=== PATIENT | female | born 1995 | race Caucasian/White ===

== ENCOUNTER 2017-08-26 14:17 | Day surgery (SDC) | payer OTHER ==
[~2017-08-26] VITALS: Ht 170.2 cm; Wt 95.7 kg
[2017-08-26] VITALS (11 sets, daily range): BP systolic 107–130; BP diastolic 62–82; PULSE 72–94; RESP 11–25; Ht 170.2 cm; Wt 95.7 kg
[~2017-08-26 14:17] MED LIST: CEFAZOLIN 2 GM/50 ML (PMX) 50 ML IVPB SCH; NO MEDS; SOD CHLORIDE 0.9% 1,000 ML IV SCH
[2017-08-26] MEDS ORDERED: METOCLOPRAMIDE 10 MG INJ ONE (16:24)
[2017-08-26] MEDS ORDERED: PROPOFOL 20 ML ONE (16:24)
[2017-08-26] MEDS ORDERED: ONDANSETRON 4 MG INJ ONE (16:24)
[2017-08-26] MEDS ORDERED: LIDOCAINE 2% (SDV) 5 ML INJ ONE (16:24)
[2017-08-26] MEDS ORDERED: CEFAZOLIN 1 GM INJ ONE (16:24)
[2017-08-26] MEDS ORDERED: EPHEDrine SULFATE 50 MG/5 ML SYG IV PRN (16:30)
[2017-08-26] MEDS ORDERED: LABETALOL HCL 20MG INJ IV PRN (16:30)
[2017-08-26] MEDS ORDERED: FENTAnyl 50 MCG/ML VIAL IV PRN ×3 (16:30)
[2017-08-26] MEDS ORDERED: MEPERIDINE 25 MG INJ IV PRN (16:30)
[2017-08-26] MEDS ORDERED: METOCLOPRAMIDE 10 MG INJ IV PRN (16:30)
[2017-08-26] MEDS ORDERED: MIDAZOLAM 1 MG/ML 2 ML INJ IV PRN (16:30)
[2017-08-26] MEDS ORDERED: ONDANSETRON 4 MG INJ IV PRN (16:30)
[2017-08-26] MEDS ORDERED: HYDROmorphONE (0.2 MG/ML) 10ML SYG IV PRN ×2 (16:30)
[2017-08-26] MEDS ORDERED: OXYCODONE/ACETAMINOPHEN (5/325) TAB PO PRN ×2 (16:30)
[2017-08-26] MEDS ORDERED: DIPHENHYDRAMINE 50 MG INJ IV PRN (16:30)
[2017-08-26] MEDS ORDERED: hydrALAzine 20 MG INJ IV PRN (16:30)
[2017-08-26] MEDS ORDERED: BUPIVACAINE 0.25% (MPF) 30 ML INJ ONE (16:59)
--- NOTE | 2017-08-26 17:07 | OPR ---
Date/Time of Note Date/Time of Note DATE: 08/26/17 TIME: 17:04 Operative Report Procedure Date: Aug 26, 2017 Preoperative Diagnosis left breast tumor Postoperative Diagnosis same Operation/Procedure Performed 1. excision of left breast tumor 5 cm tumor 7 cm incision 2. localized adjacent tissue transfer with the use of skin flaps 14 sq cm defect 3. therapeutic injection of subcutaneous local anesthesia Surgeon see signature line [employer] none Anesthesia Type: general Estimated Blood Loss: 0 - 10 ml's Transfusion none Specimen left breast tumor Grafts/Implants none Complications none Pt Condition Post Procedure: stable Indications This is a 22-year-old female with a left breast tumor. She required surgical excision. Risks alternatives benefits and percent were discussed with patient. Patient's best understanding consents to the operation. Procedure Description Patient is taken to the OR and prepped and draped in usual sterile fashion. Surgical timeout is performed. IV antibiotics were given. Curvilinear incision is made over the left breast upper outer region with a 15 blade. Dissection cautery was carried onto the tumor. Tumor is excised with cautery. There is good hemostasis. Due to large tissue defect localized adjacent tissue transfer with these of skin flaps were performed. Multilayer closure with interrupted 3-0 Vicryl and running 4-0 Monocryl. Therapeutic subcutaneous local anesthesia is injected throughout the incision site. Dry dressings were applied. Nilam JOSE Aug 26, 2017 17:07
[2017-08-26] MEDS: HYDROmorphONE (0.2 MG/ML) 10ML SYG IV PRN ×2 (17:20→17:25)
[2017-08-26] MEDS ORDERED: HYDROCODONE/APAP (5/325) TAB PO ONE (17:30)
== END 2017-08-26 18:27 | disposition home or self-care (01) ==
LOC: SDS 14:17
PROVIDERS: ATTEND Surgery
DX: D24.2 Benign neoplasm of left breast (principal); E66.01 Morbid (severe) obesity due to excess calories
CPT/HCPCS: 14001; 19301; 88307; J0690; J1170; J2405; J2765; J3010; Z7512; Z7610